=== PATIENT | male | born 1985 | race Caucasian/White ===

== ENCOUNTER 2019-07-02 18:10 | Emergency (ER) | payer BC ==
[2019-07-02] MEDS ORDERED: cefTRIAXone 1 GM Vial IM ONE (18:32)
--- NOTE | 2019-07-02 18:43 | EDM.PDOC ---
ED HPI GENERAL MEDICAL PROBLEM - General Chief Complaint: Skin Complaint Stated Complaint: SORE ON LFT LEG Time Seen by Provider: 07/02/19 18:28 Source of Information: Reports: Patient History Limitations: Reports: No Limitations - History of Present Illness INITIAL COMMENTS - FREE TEXT/NARRATIVE: HISTORY AND PHYSICAL: History of present illness: Patient is a 34-year-old male presents to the ED today with concern of a sore on his left calf over the past couple days. Patient states initially looked, like a pimple but now has become a little bit more red. Patient denies any associated symptoms with this. Patient denies any other symptoms or concerns. Patient denies fever, chills, chest pain, shortness of breath, or cough. Denies headache, neck stiff ness, change in vision, syncope, or near syncope. Denies nausea, vomiting, abdominal pain, diarrhea, constipation, or dysuria. Has not noted any blood in urine or stool. Patient has been eating and drinking appropriately. Review of systems: As per history of present illness and below otherwise all systems reviewed and negative. Past medical history: As per history of present illness and as reviewed below otherwise noncontributory. Surgical history: As per history of present illness and as reviewed below otherwise noncontributory. Social history: See social history for further information Family history: As per history of present illness and as reviewed below otherwise noncontributory. Physical exam: General: Patient is alert, oriented, and in no acute distress. Patient sitting comfortably on exam table. HEENT: Atraumatic, normocephalic, pupils equal and reactive bilaterally, negative for conjunctival pallor or scleral icterus, mucous membranes moist, TMs normal bilaterally, throat clear, neck supple, nontender, trachea midline. No drooling or trismus noted. No meningeal signs. No hot potato voice noted. Lungs: Clear to auscultation, breath sounds equal bilaterally, chest nontender. Heart: S1S2, regular rate and rhythm without overt murmur Abdomen: Soft, nondistended, nontender. Negative for masses or hepatosplenomegaly. Negative for costovertebral tenderness. Pelvis: Stable nontender. Genitourinary: Deferred. Rectal: Deferred. Skin: Intact, warm, dry. No lesions or rashes noted. Extremities: Atraumatic, negative for cords or calf pain. Neurovascular unremarkable. There is a 0.5 cm scab with surrounding 1-2 cm of erythema suggestive of folliculitis/cellulitis of the posterior mid left calf area. None fluctuant and no induration of this area. This area was outlined using a surgical marker. Neuro: Awake, alert, oriented. Cranial nerves II through XII unremarkable. Cerebellum unremarkable. Motor and sensory unremarkable throughout. Exam nonfocal. Notes: Discussed the importance for follow-up with a primary care provider. Voices understanding and is agreeable to plan of care. Denies any further questions or concerns at this time. Diagnostics: Tib/fib XR, CBC, CMP Therapeutics: Rocephin Prescription: Bactrim DS Impression: Cellulitis, left calf Plan: 1. Take medication as prescribed. You can alternate ibuprofen and Tylenol as directed for pain and discomfort. 2. Continue to monitor for signs of improving versus spreading infection. Return to the ED in 24-48 hours for reevaluation as discussed. 3. Follow up with your primary care provider as discussed. Return to the ED as needed and as discussed. Definitive disposition and diagnosis as appropriate pending reevaluation and review of above. left calf Pain Score (Numeric/FACES): 5 - Related Data Allergies Allergy/AdvReac Type Severity Reaction Status Date / Time No Known Allergies Allergy Verified 07/02/19 18:21 Home Meds: Home Meds Albuterol Sulfate [Proventil Hfa] 6.7 gm PO DAILY 07/23/18 [History] Fluticasone/Salmeterol [Advair 100-50] 14 disk PO DAILY 07/23/18 [History] Montelukast [Singulair] 10 mg PO DAILY 07/02/19 [History] Sulfamethoxazole/Trimethoprim [Bactrim Ds Tablet] 1 each PO BID #20 tablet 07/02 [Rx] Past Medical History HEENT History: Reports: None Cardiovascular History: Reports: None Respiratory History: Reports: Asthma Genitourinary History: Reports: None Neurological History: Reports: None Psychiatric History: Reports: None Endocrine/Metabolic History: Reports: None Oncologic (Cancer) History: Reports: None Dermatologic History: Reports: None - Infectious Disease History Infectious Disease History: Reports: Chicken Pox - Past Surgical History HEENT Surgical History: Reports: None GI Surgical History: Reports: Appendectomy Musculoskeletal Surgical History: Reports: Arthroscopic Knee Other Musculoskeletal Surgeries/Procedures:: left knee surgery 2007 Social & Family History - Family History Family Medical History: Noncontributory - Tobacco Use Smoking Status *Q: Never Smoker - Caffeine Use Caffeine Use: Reports: Coffee - Recreational Drug Use Recreational Drug Use: No ED ROS GENERAL - Review of Systems Review Of Systems: Comprehensive ROS is negative, except as noted in HPI. ED EXAM, SKIN/RASH Exam: See Below (see dictation) Course - Vital Signs Last Recorded V/S: Last Vital Signs Temp 97 F 07/02/19 18:19 Pulse 82 07/02/19 18:19 Resp 18 07/02/19 18:19 BP 162/99 H 07/02/19 18:19 Pulse Ox 98 07/02/19 18:19 - Orders/Labs/Meds Labs: Laboratory Tests 07/02/19 07/02/19 Range/Units 18:43 18:43 WBC 10.12 (4.0-11.0) K/uL RBC 4.78 (4.50-5.90) M/uL Hgb 16.1 (13.0-17.0) g/dL Hct 45.7 (38.0-50.0) % MCV 95.6 (80.0-98.0) fL MCH 33.7 H (27.0-32.0) pg MCHC 35.2 (31.0-37.0) g/dL RDW Std Deviation 42.4 (28.0-62.0) fl RDW Coeff of Jasmin 12 (11.0-15.0) % Plt Count 283 (150-400) K/uL MPV 9.90 (7.40-12.00) fL Neut % (Auto) 70.4 (48.0-80.0) % Lymph % (Auto) 17.9 (16.0-40.0) % Tyrrell % (Auto) 7.4 (0.0-15.0) % Eos % (Auto) 3.7 (0.0-7.0) % Baso % (Auto) 0.6 (0.0-1.5) % Neut # (Auto) 7.1 H (1.4-5.7) K/uL Lymph # (Auto) 1.8 (0.6-2.4) K/uL Tyrrell # (Auto) 0.8 (0.0-0.8) K/uL Eos # (Auto) 0.4 (0.0-0.7) K/uL Baso # (Auto) 0.1 (0.0-0.1) K/uL Nucleated RBC % 0.0 /100WBC Nucleated RBCs # 0 K/uL Sodium 138 (136-148) mmol/L Potassium 4.2 (3.5-5.1) mmol/L Chloride 105 (98-107) mmol/L Carbon Dioxide 23.4 (21.0-32.0) mmol/L BUN 15 (7.0-18.0) mg/dL Creatinine 1.1 (0.8-1.3) mg/dL Est Cr Clr Drug Dosing 97.70 mL/min Estimated GFR (MDRD) > 60.0 ml/min Glucose 89 (74-106) mg/dL Calcium 9.0 (8.5-10.1) mg/dL Total Bilirubin 0.5 (0.2-1.0) mg/dL AST 24 (15-37) IU/L ALT 45 (14-63) IU/L Alkaline Phosphatase 102 (46-116) U/L Total Protein 7.8 (6.4-8.2) g/dL Albumin 4.2 (3.4-5.0) g/dL Globulin 3.6 (2.6-4.0) g/dL Albumin/Globulin Ratio 1.2 (0.9-1.6) Meds: Medications Discontinued Medications Generic Name Dose Route Start Last Admin Trade Name Freq PRN Reason Stop Dose Admin Ceftriaxone Sodium 1 gm 07/02/19 18:32 07/02/19 19:00 Rocephin IM 07/02/19 18:33 1 gm ONETIME ONE Administration Departure - Departure Time of Disposition: 19:13 Disposition: Home, Self-Care 01 Clinical Impression: Cellulitis Qualifiers: Site of cellulitis: extremity Site of cellulitis of extremity: lower extremity Laterality: left Qualified Code(s): L03.116 - Cellulitis of left lower limb - Discharge Information Prescriptions: Sulfamethoxazole/Trimethoprim [Bactrim Ds Tablet] 1 each PO BID #20 tablet Referrals: Marc Álvarez MD [Primary Care Provider] - Forms: ED Department Discharge Additional Instructions: The following information is given to patients seen in the emergency department who are being discharged to home. This information is to outline your options for follow-up care. We provide all patients seen in our emergency department with a follow-up referral. The need for follow-up, as well as the timing and circumstances, are variable depending upon the specifics of your emergency department visit. If you don't have a primary care physician on staff, we will provide you with a referral. We always advise you to contact your personal physician following an emergency department visit to inform them of the circumstance of the visit and for follow-up with them and/or the need for any referrals to a consulting specialist. The emergency department will also refer you to a specialist when appropriate. This referral assures that you have the opportunity for follow-up care with a specialist. All of these measure are taken in an effort to provide you with optimal care, which includes your follow-up. Under all circumstances we always encourage you to contact your private physician who remains a resource for coordinating your care. When calling for follow-up care, please make the office aware that this follow-up is from your recent emergency room visit. If for any reason you are refused follow-up, please contact the [facility] Emergency Department at and asked to speak to the emergency department charge nurse. [facility] [address] [place] [address] [id number] [address] [id number] 1. Take medication as prescribed. You can alternate ibuprofen and Tylenol as directed for pain and discomfort. 2. Continue to monitor for signs of improving versus spreading infection. Return to the ED in 24-48 hours for reevaluation as discussed. 3. Follow up with your primary care provider as discussed. Return to the ED as needed and as discussed.
--- NOTE | 2019-07-02 19:05 | CR ---
Indication: Cellulitis Technique: Four views of the left tibia and fibula Comparison: None available Findings/Impression: Bones: No acute fracture or suspicious osseous abnormality seen. Apparent superolateral subluxation of the patella on the 1st image could be projectional. Correlate clinically. Joint spaces: Unremarkable. Soft tissues: Unremarkable. Dictated by Doc Rivera MD @ 07/02/2019 7:02:58 PM Dictated by: Doc Rivera MD @ 07/02/2019 19:04:07 (Electronically Signed)
[2019-07-02 19:09] LABS: BLOOD UREA NITROGEN,BUN 15 mg/dL (7.0-18.0); CARBON DIOXIDE,CO2 23.4 mmol/L (21.0-32.0); CHLORIDE,CL 105 mmol/L (98-107); GLUCOSE RANDOM 89 mg/dL (74-106); POTASSIUM,K 4.2 mmol/L (3.5-5.1); SODIUM,NA 138 mmol/L (136-148)
== END 2019-07-02 19:20 | disposition home or self-care (01) ==
LOC: MW.ED 18:10
DX: L03.116 Cellulitis of left lower limb (principal); J45.909 Unspecified asthma, uncomplicated; Z79.51 Long term (current) use of inhaled steroids
CPT/HCPCS: 36415; 73590; 80053; 85025; 96372; 99283; J0696

== ENCOUNTER 2019-11-06 02:03 | Emergency (ER) | payer BC, OTHER ==
--- NOTE | 2019-11-06 02:32 | EDM.PDOC ---
ED HPI GENERAL MEDICAL PROBLEM - General Chief Complaint: Respiratory Problem Stated Complaint: SORE THROAT, FEVER, COUGH, ASTHMA Time Seen by Provider: 11/06/19 02:27 Source of Information: Reports: Patient History Limitations: Reports: No Limitations - History of Present Illness INITIAL COMMENTS - FREE TEXT/NARRATIVE: He has had cough shortness of breath and sore throat for 2 days. Notes he called in sick from work yesterday is having chest pain and dyspnea on exertion Duration: Getting Worse Quality: Reports: Ache Severity: Moderate Improves with: Reports: None Worsens with: Reports: Movement Associated Symptoms: Reports: Cough, cough w sputum, Fever/Chills, Weakness sore throat Pain Score (Numeric/FACES): 4 - Related Data Allergies Allergy/AdvReac Type Severity Reaction Status Date / Time No Known Allergies Allergy Verified 11/06/19 02:16 Home Meds: Home Meds Albuterol Sulfate [Proventil Hfa] 1 inh INH ASDIRECTED 07/23/18 [History] Fluticasone/Salmeterol [Advair 100-50] 14 inh INH ASDIRECTED 07/23/18 [History] Montelukast [Singulair] 10 mg PO BID 07/02/19 [History] Past Medical History HEENT History: Reports: None Cardiovascular History: Reports: None Respiratory History: Reports: Asthma Gastrointestinal History: Reports: None Genitourinary History: Reports: None Musculoskeletal History: Reports: None Neurological History: Reports: None Psychiatric History: Reports: None Endocrine/Metabolic History: Reports: None 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 Hematologic History: Reports: None Immunologic History: Reports: None Oncologic (Cancer) History: Reports: None Dermatologic History: Reports: None - Infectious Disease History Infectious Disease History: Reports: None - Past Surgical History Head Surgeries/Procedures: Reports: None HEENT Surgical History: Reports: None GI Surgical History: Reports: Appendectomy Musculoskeletal Surgical History: Reports: Arthroscopic Knee Other Musculoskeletal Surgeries/Procedures:: left knee surgery 2007 Social & Family History - Family History Family Medical History: Noncontributory - Tobacco Use Smoking Status *Q: Never Smoker - Caffeine Use Caffeine Use: Reports: Soda - Recreational Drug Use Recreational Drug Use: No ED ROS GENERAL - Review of Systems Review Of Systems: See Below Constitutional: Reports: No Symptoms, Fever, Chills HEENT: Reports: No Symptoms Respiratory: Reports: Shortness of Breath, Pleuritic Chest Pain, Cough, Sputum Cardiovascular: Reports: Dyspnea on Exertion Endocrine: Reports: No Symptoms GI/Abdominal: Reports: No Symptoms Musculoskeletal: Reports: No Symptoms Skin: Reports: No Symptoms Neurological: Reports: No Symptoms Psychiatric: Reports: No Symptoms Hematologic/Lymphatic: Reports: No Symptoms Immunologic: Reports: No Symptoms ED EXAM, GENERAL - Physical Exam Exam: See Below General Appearance: Alert, WD/WN, No Apparent Distress Eye Exam: Bilateral Eye: Normal Fundi, Normal Inspection, PERRL Ear Exam: Bilateral Ear: Auricle Normal, Canal Normal Nose: Normal Inspection Throat/Mouth: Normal Inspection Head: Atraumatic, Normocephalic Neck: Normal Inspection Respiratory/Chest: Rhonchi Cardiovascular: Normal Peripheral Pulses Back Exam: Normal Inspection, Full Range of Motion Extremities: Normal Inspection, Normal Range of Motion Neurological: Alert, Oriented, CN II-XII Intact Psychiatric: Normal Affect, Normal Mood Skin Exam: Warm, Dry, Intact, Normal Color Lymphatic: No Adenopathy Course - Vital Signs Text/Narrative:: This 34-year-old gentleman presents to the emergency room with a chief complaint of cough, fever, some shortness of breath. Patient is an asthmatic and states that for the past 3 days he has been feeling worse than normal. Patient's O2 saturation has been very good. Patient's chest x-ray which was performed today has been negative. Patient is negative for his strep, influenza AMB. Patient had a CMV 19 test which is pending at this time patient instructed to stay isolated/quarantined and wait for results of testing. Developed severe shortness of breath worsening he is to follow-up with the emergency room. Patient to follow-up with his primary care physician and continue his medication for asthma. Of note the patient is not wheezing does have scattered rhonchi. Last Recorded V/S: Last Vital Signs Temp 96.8 F L 11/06/19 02:15 Pulse 110 H 11/06/19 02:15 Resp 18 11/06/19 02:15 BP 142/90 H 11/06/19 02:15 Pulse Ox 96 11/06/19 02:15 - Orders/Labs/Meds Orders: Active Orders 24 hr Category Date Time Status CORONAVIRUS COVID-19 PCR PHL [MREF] Stat Lab 11/06/19 02:30 Received CULTURE STREP A CONFIRMATION [RM] Stat Lab 11/06/19 02:30 Results STREP SCRN A RAPID W CULT CONF [RM] Stat Lab 11/06/19 02:30 Results Isolation [COMM] Routine Oth 11/06/19 02:34 Active Departure - Departure Time of Disposition: 03:16 Disposition: Home, Self-Care 01 Clinical Impression: URI, acute, Respiratory syncytial virus (RSV) infection - Discharge Information Instructions: Viral Respiratory Infection, [id number] Referrals: Marc Álvarez MD [Primary Care Provider] - Forms: ED Department Discharge Additional Instructions: 1. Removed self quarantine until results of test. II. Increase zinc and vitamin C. 3. Stay hydrated . 4. Return to the emergency room for shortness of breath severe, and/or severe chest pain Sepsis Event Note - Evaluation Sepsis Screening Result: No Definite Risk - Focused Exam Vital Signs: Vital Signs Temp Pulse Resp BP Pulse Ox 11/06/19 02:15 96.8 F L 110 H 18 142/90 H 96 Date Exam was Performed: 11/06/19 Time Exam was Performed: 03:14 - My Orders Last 24 Hours: My Active Orders 11/06/19 02:30 CORONAVIRUS COVID-19 PCR PHL [MREF] Stat CULTURE STREP A CONFIRMATION [RM] Stat STREP SCRN A RAPID W CULT CONF [RM] Stat 11/06/19 02:34 Isolation [COMM] Routine - Assessment/Plan Last 24 Hours: My Active Orders 11/06/19 02:30 CORONAVIRUS COVID-19 PCR PHL [MREF] Stat CULTURE STREP A CONFIRMATION [RM] Stat STREP SCRN A RAPID W CULT CONF [RM] Stat 11/06/19 02:34 Isolation [COMM] Routine
--- NOTE | 2019-11-06 03:09 | CR ---
INDICATION: Cough, congestion TECHNIQUE: Chest radiograph 1 view COMPARISON: None FINDINGS: Mediastinum: The mediastinum is normal in appearance. The heart silhouette is normal in size and morphology. Lung: Both lungs are unremarkable in appearance. No sign of pleural effusion seen. No pneumothorax is identified. Bone and Soft tissue: Unremarkable for age. IMPRESSION: 1. No acute cardiopulmonary disease is seen. Dictated by: Aleks Cornejo MD @ 11/06/2019 03:08:54 (Electronically Signed)
== END 2019-11-06 03:30 | disposition home or self-care (01) ==
LOC: MW.ED 02:03
DX: J06.9 Acute upper respiratory infection, unspecified (principal); B97.4 Respiratory syncytial virus as the cause of diseases classified elsewhere; Z79.899 Other long term (current) drug therapy; Z20.828 Contact with and (suspected) exposure to other viral communicable diseases
CPT/HCPCS: 71045; 71045-26; 87081; 87804; 87880-QW; 99283; 99285-25; U0002

== ENCOUNTER 2021-08-10 05:40 | Emergency (ER) | payer BC ==
[2021-08-10] MEDS ORDERED: Sodium Chloride 0.9% 1,000 ML IV ONE ×2 (06:05→07:16)
[2021-08-10] MEDS ORDERED: Ondansetron 4 MG/2 ML SDV IVPUSH ONE (06:05)
[2021-08-10] MEDS ORDERED: Sodium Chloride 0.9% 2.5 ML Syringe FLUSH PRN (06:05)
[2021-08-10] MEDS ORDERED: Sodium Chloride 0.9% 10 ML Syringe FLUSH PRN (06:05)
[2021-08-10 06:20] LABS: CARBON DIOXIDE,CO2 20.7 mmol/L (21.0-32.0)
--- NOTE | 2021-08-10 06:22 | EDM.PDOC ---
ED HPI GENERAL MEDICAL PROBLEM - General Chief Complaint: Abdominal Pain Stated Complaint: SHORT OF BREATH, VOMITING, DIARRHEA Time Seen by Provider: 08/10/21 06:19 Source of Information: Reports: Patient History Limitations: Reports: No Limitations - History of Present Illness INITIAL COMMENTS - FREE TEXT/NARRATIVE: 36-year-old male past medical history asthma presents for abdominal pain associated with nausea, vomiting, diarrhea, shortness of breath. Patient states that symptoms started with abdominal pain around 9 AM yesterday. Abdominal pain is in his midepigastrium radiating to diffuse generalized abdomen. It is associated with too numerous to count episodes of vomiting. This notes multiple episodes of watery diarrhea. He notes that he has developed a mild cough and shortness of breath after the vomiting. Abdomen Pain Score (Numeric/FACES): 8 - Related Data Allergies Allergy/AdvReac Type Severity Reaction Status Date / Time No Known Allergies Allergy Verified 08/10/21 05:52 Home Meds: Home Meds Albuterol Sulfate [Proventil Hfa] 1 inh INH ASDIRECTED 07/23/18 [History] Fluticasone/Salmeterol [Advair 100-50] 14 inh INH ASDIRECTED 07/23/18 [History] Montelukast [Singulair] 10 mg PO BID 07/02/19 [History] Amoxicillin/Clavulanate K [Augmentin 875-125 MG] 1 tab PO BID #20 tablet 08/10/21 [Rx] Ondansetron [Zofran ODT] 4 mg PO Q6H PRN #10 tab.dis 08/10/21 [Rx] Past Medical History HEENT History: Reports: None Cardiovascular History: Reports: None Respiratory History: Reports: Asthma Gastrointestinal History: Reports: None Genitourinary History: Reports: None Musculoskeletal History: Reports: None Neurological History: Reports: None Psychiatric History: Reports: None Endocrine/Metabolic History: Reports: None Insulin Pump Model and Filler Operator: N/A Hematologic History: Reports: None Immunologic History: Reports: None Oncologic (Cancer) History: Reports: None Dermatologic History: Reports: None - Infectious Disease History Infectious Disease History: Reports: None - Past Surgical History Head Surgeries/Procedures: Reports: None HEENT Surgical History: Reports: None GI Surgical History: Reports: Appendectomy Musculoskeletal Surgical History: Reports: Arthroscopic Knee Other Musculoskeletal Surgeries/Procedures:: left knee surgery 2008 Social & Family History - Family History Family Medical History: No Pertinent Family History - Caffeine Use Caffeine Use: Reports: Soda - Recreational Drug Use Recreational Drug Use: No ED ROS GENERAL - Review of Systems Review Of Systems: Comprehensive ROS is negative, except as noted in HPI. ED EXAM, GENERAL - Physical Exam Exam: See Below Exam Limited By: No Limitations General Appearance: Alert, WD/WN, No Apparent Distress Ears: Hearing Grossly Normal Throat/Mouth: Normal Voice, No Airway Compromise Head: Atraumatic, Normocephalic Respiratory/Chest: No Respiratory Distress, Lungs Clear, Normal Breath Sounds, No Accessory Muscle Use Cardiovascular: Normal Peripheral Pulses, Tachycardia GI/Abdominal: Soft, Non-Tender, No Distention Extremities: Normal Inspection Neurological: Alert, Normal Cognition, Normal Gait Psychiatric: Normal Affect, Normal Mood Skin Exam: Warm, Dry, Intact, Normal Color Course - Vital Signs Last Recorded V/S: Last Vital Signs Temp 97.4 F 08/10/21 05:40 Pulse 114 H 08/10/21 07:26 Resp 20 08/10/21 07:26 BP 142/98 H 08/10/21 07:26 Pulse Ox 99 08/10/21 07:26 - Orders/Labs/Meds Orders: Active Orders 24 hr Category Date Time Status Sodium Chloride 0.9% [Saline Flush] Med 08/10/21 06:05 Active 10 ml FLUSH ASDIRECTED PRN Sodium Chloride 0.9% [Saline Flush] Med 08/10/21 06:05 Active 2.5 ml FLUSH ASDIRECTED PRN Saline Lock Insert [OM.PC] Stat Oth 08/10/21 06:05 Ordered Medication Orders Sodium Chloride (Sodium Chloride 0.9% 10 Ml Syringe) 10 ml FLUSH ASDIRECTED PRN PRN Reason: Keep Vein Open Last Admin: 08/10/21 06:15 Dose: 10 ml Documented by: PRIMITIVO Sodium Chloride (Sodium Chloride 0.9% 2.5 Ml Syringe) 2.5 ml FLUSH ASDIRECTED PRN PRN Reason: Keep Vein Open Last Admin: 08/10/21 06:15 Dose: 2.5 ml Documented by: PRIMITIVO Labs: Laboratory Tests 08/10/21 08/10/21 08/10/21 Range/Units 05:48 05:48 05:48 WBC 10.21 (4.0-11.0) K/uL RBC 4.75 (4.50-5.90) M/uL Hgb 17.0 (13.0-17.0) g/dL Hct 46.4 (38.0-50.0) % MCV 97.7 (80.0-98.0) fL MCH 35.8 H (27.0-32.0) pg MCHC 36.6 (31.0-37.0) g/dL RDW Std Deviation 41.9 (28.0-62.0) fl RDW Coeff of Jasmin 12 (11.0-15.0) % Plt Count 255 (150-400) K/uL MPV 9.90 (7.40-12.00) fL Neut % (Auto) 89.6 H (48.0-80.0) % Lymph % (Auto) 3.0 L (16.0-40.0) % Mora % (Auto) 6.5 (0.0-15.0) % Eos % (Auto) 0.8 (0.0-7.0) % Baso % (Auto) 0.1 (0.0-1.5) % Neut # (Auto) 9.2 H (1.4-5.7) K/uL Lymph # (Auto) 0.3 L (0.6-2.4) K/uL Mora # (Auto) 0.7 (0.0-0.8) K/uL Eos # (Auto) 0.1 (0.0-0.7) K/uL Baso # (Auto) 0.0 (0.0-0.1) K/uL Nucleated RBC % 0.0 /100WBC Nucleated RBCs # 0 K/uL Sodium 137 (136-148) mmol/L Potassium 4.0 (3.5-5.1) mmol/L Chloride 101 (98-107) mmol/L Carbon Dioxide 20.7 L (21.0-32.0) mmol/L BUN 19 H (7.0-18.0) mg/dL Creatinine 1.4 H (0.8-1.3) mg/dL Est Cr Clr Drug Dosing 75.32 mL/min Estimated GFR (MDRD) 57.3 ml/min Glucose 148 H (74-106) mg/dL Calcium 9.3 (8.5-10.1) mg/dL Total Bilirubin 1.6 H (0.2-1.0) mg/dL AST 20 (15-37) IU/L ALT 40 (14-63) IU/L Alkaline Phosphatase 73 (46-116) U/L Total Protein 7.7 (6.4-8.2) g/dL Albumin 4.4 (3.4-5.0) g/dL Globulin 3.3 (2.6-4.0) g/dL Albumin/Globulin Ratio 1.3 (0.9-1.6) Lipase (73-393) U/L Urine Color Urine Appearance Urine pH (5.0-8.0) Ur Specific Sanderson (1.001-1.035) Urine Protein (NEGATIVE) mg/dL Urine Glucose (UA) (NEGATIVE) mg/dL Urine Ketones (NEGATIVE) mg/dL Urine Occult Blood (NEGATIVE) Urine Nitrite (NEGATIVE) Urine Bilirubin (NEGATIVE) Urine Urobilinogen (<2.0) EU/dL Ur Leukocyte Esterase (NEGATIVE) Influenza Type A RNA NEGATIVE (NEGATIVE) Influenza Type B RNA NEGATIVE (NEGATIVE) SARS-CoV-2 RNA (BRETT) NEGATIVE (NEGATIVE) 08/10/21 08/10/21 Range/Units 05:54 07:30 WBC (4.0-11.0) K/uL RBC (4.50-5.90) M/uL Hgb (13.0-17.0) g/dL Hct (38.0-50.0) % MCV (80.0-98.0) fL MCH (27.0-32.0) pg MCHC (31.0-37.0) g/dL RDW Std Deviation (28.0-62.0) fl RDW Coeff of Jasmin (11.0-15.0) % Plt Count (150-400) K/uL MPV (7.40-12.00) fL Neut % (Auto) (48.0-80.0) % Lymph % (Auto) (16.0-40.0) % Mora % (Auto) (0.0-15.0) % Eos % (Auto) (0.0-7.0) % Baso % (Auto) (0.0-1.5) % Neut # (Auto) (1.4-5.7) K/uL Lymph # (Auto) (0.6-2.4) K/uL Mora # (Auto) (0.0-0.8) K/uL Eos # (Auto) (0.0-0.7) K/uL Baso # (Auto) (0.0-0.1) K/uL Nucleated RBC % /100WBC Nucleated RBCs # K/uL Sodium (136-148) mmol/L Potassium (3.5-5.1) mmol/L Chloride (98-107) mmol/L Carbon Dioxide (21.0-32.0) mmol/L BUN (7.0-18.0) mg/dL Creatinine (0.8-1.3) mg/dL Est Cr Clr Drug Dosing mL/min Estimated GFR (MDRD) ml/min Glucose (74-106) mg/dL Calcium (8.5-10.1) mg/dL Total Bilirubin (0.2-1.0) mg/dL AST (15-37) IU/L ALT (14-63) IU/L Alkaline Phosphatase (46-116) U/L Total Protein (6.4-8.2) g/dL Albumin (3.4-5.0) g/dL Globulin (2.6-4.0) g/dL Albumin/Globulin Ratio (0.9-1.6) Lipase 67 L (73-393) U/L Urine Color DARK YELLOW Urine Appearance CLEAR Urine pH 8.0 (5.0-8.0) Ur Specific Sanderson 1.015 (1.001-1.035) Urine Protein NEGATIVE (NEGATIVE) mg/dL Urine Glucose (UA) NEGATIVE (NEGATIVE) mg/dL Urine Ketones >=80 (NEGATIVE) mg/dL Urine Occult Blood NEGATIVE (NEGATIVE) Urine Nitrite NEGATIVE (NEGATIVE) Urine Bilirubin NEGATIVE (NEGATIVE) Urine Urobilinogen 0.2 (<2.0) EU/dL Ur Leukocyte Esterase NEGATIVE (NEGATIVE) Influenza Type A RNA (NEGATIVE) Influenza Type B RNA (NEGATIVE) SARS-CoV-2 RNA (BRETT) (NEGATIVE) Meds: Medications Generic Name Dose Route Start Last Admin Trade Name Freq PRN Reason Stop Dose Admin Sodium Chloride 10 ml 08/10/21 06:05 08/10/21 06:15 Sodium Chloride 0.9% 10 Ml Syringe FLUSH 10 ml ASDIRECTED PRN Administration Keep Vein Open Sodium Chloride 2.5 ml 08/10/21 06:05 08/10/21 06:15 Sodium Chloride 0.9% 2.5 Ml Syringe FLUSH 2.5 ml ASDIRECTED PRN Administration Keep Vein Open Discontinued Medications Generic Name Dose Route Start Last Admin Trade Name Freq PRN Reason Stop Dose Admin Sodium Chloride 1,000 mls @ 999 mls/hr 08/10/21 06:05 08/10/21 06:11 Normal Saline IV 08/10/21 07:05 999 mls/hr .Bolus ONE Administration Sodium Chloride 1,000 mls @ 999 mls/hr 08/10/21 07:16 08/10/21 07:25 Normal Saline IV 08/10/21 08:16 999 mls/hr .Bolus ONE Administration Iopamidol 100 ml 08/10/21 07:59 08/10/21 08:00 Iopamidol 755 Mg/Ml 500 Ml Multipack Bottle IVPUSH 08/10/21 08:00 100 ml ONETIME STA Administration Morphine Sulfate 4 mg 08/10/21 06:28 08/10/21 06:47 Morphine 4 Mg/Ml Vial IVPUSH 08/10/21 06:29 4 mg ONETIME ONE Administration Ondansetron HCl 4 mg 08/10/21 06:05 08/10/21 06:11 Ondansetron 4 Mg/2 Ml Sdv IVPUSH 08/10/21 06:06 4 mg ONETIME ONE Administration - Re-Assessments/Exams Free Text/Narrative Re-Assessment/Exam: 08/10/21 06:32 Will get labs, COVID testing, will treat symptomatically. 08/10/21 07:16 Labs show mild elevated bilirubin, mild elevated creatinine, otherwise grossly normal. Will give additional 1 L IV fluid bolus. Will get CT abdomen pelvis. 08/10/21 08:40 CT imaging shows colitis, otherwise unremarkable. Will discharge patient with short course of antibiotics, symptomatic relief medication. Departure - Departure Time of Disposition: 08:40 Disposition: Home, Self-Care 01 Condition: Good Clinical Impression: Colitis - Discharge Information Prescriptions: Amoxicillin/Clavulanate K [Augmentin 875-125 MG] 1 tab PO BID #20 tablet Ondansetron [Zofran ODT] 4 mg PO Q6H PRN #10 tab.dis PRN Reason: Nausea Instructions: Abdominal Pain, Adult, [id number] Referrals: PCP,None [Primary Care Provider] - Forms: ED Department Discharge Additional Instructions: Your CT imaging shows evidence of colitis which is an infectious or inflammatory process of the colon. I prescribed a medication called Augmentin which can help with infection as well as a medication called zofran which can help with your nausea. You may still experience symptoms for the next few days, but if pain worsens or you cannot keep anything down, come back to the ER for reassessment. Medications were sent to [facility]. The following information is given to patients seen in the emergency department who are being discharged to home. This information is to outline your options for follow-up care. We provide all patients seen in our emergency department with a follow-up referral. The need for follow-up, as well as the timing and circumstances, are variable depending upon the specifics of your emergency department visit. If you don't have a primary care physician on staff, we will provide you with a referral. We always advise you to contact your personal physician following an emergency department visit to inform them of the circumstance of the visit and for follow-up with them and/or the need for any referrals to a consulting specialist. The emergency department will also refer you to a specialist when appropriate. This referral assures that you have the opportunity for follow-up care with a specialist. All of these measure are taken in an effort to provide you with optimal care, which includes your follow-up. Under all circumstances we always encourage you to contact your private physician who remains a resource for coordinating your care. When calling for follow-up care, please make the office aware that this follow-up is from your recent emergency room visit. If for any reason you are refused follow-up, please contact the [facility] Emergency Department at and asked to speak to the emergency department charge nurse. Please follow up with your primary care physician. If you do not have a primary care physician, see below: [facility] [address] [place] [id number] [address] [address] [facility] [address] [place] [address], [place] [address] Sepsis Event Note (ED) - Evaluation Sepsis Screening Result: No Definite Risk - Focused Exam Vital Signs: Vital Signs Temp Pulse Resp BP Pulse Ox 08/10/21 07:26 114 H 20 142/98 H 99 08/10/21 05:40 97.4 F 102 H 18 136/93 H 98
[2021-08-10] MEDS ORDERED: Morphine 4 MG/ML VIAL IVPUSH ONE (06:28)
--- NOTE | 2021-08-10 06:36 | CR ---
INDICATION: Difficulty in breathing COMPARISON: November 06, 2019 TECHNIQUE: PA and lateral views of the chest were acquired FINDINGS: TUBES AND LINES: None. HEART AND MEDIASTINUM: The heart size is normal. The mediastinal contour appears normal for patient age. LUNGS AND PLEURAL SPACES: The lungs appear normal.The pleural spaces are unremarkable. OSSEOUS STRUCTURES: Age-appropriate appearance. No acute focal finding. IMPRESSION: No evidence of active pulmonary disease. Dictated by Benjamin Corral MD @ 08/10/2021 6:34:18 AM (Electronically Signed)
[2021-08-10 06:41] LABS: CORONAVIRUS COVID-19 NAA NEGATIVE (NEGATIVE); INFLUENZA A NAA NEGATIVE (NEGATIVE); INFLUENZA B NAA NEGATIVE (NEGATIVE)
[2021-08-10] MEDS ORDERED: Iopamidol 755 MG/ML 500 ML Multipack Bottle IVPUSH STA (07:59)
--- NOTE | 2021-08-10 08:22 | CT ---
INDICATION: Mid epigastric pain and vomiting. COMPARISON: None TECHNIQUE: CT examination of the abdomen and pelvis was performed following the uneventful intravenous administration of 100 cc of Isovue 370. Thin section axial images were obtained from the lung bases through the pubic symphysis. Oral contrast was not administered. Please note that all CT scans at this facility use dose modulation, iterative reconstruction, and/or weight-based dosing when appropriate to reduce radiation dose to as low as reasonably achievable. FINDINGS: LUNG BASES: The lung bases as visualized appear normal.Heart size is normal at the lung bases. Small hiatal hernia. LIVER/BILIARY SYSTEM:Hepatic steatosis. No focal mass or biliary ductal dilatation.The gall bladder appears normal. ADRENALS: Normal KIDNEYS, URETERS and BLADDER:The kidneys appear normal. No visible mass, calculus or hydronephrosis. The ureters and bladder as visualized appear normal. SPLEEN:Normal appearance. PANCREAS: Appears normal. RETROPERITONEUM and MESENTERY: There is no mass, adenopathy or aortic aneurysm. GASTROINTESTINAL SYSTEM: There is mild thickening of the transverse colon. This may be due to a mild colitis pattern in this area. No intramural air, free air or collection. No mechanical obstruction. PELVIS: No mass, adenopathy or free fluid. OSSEOUS STRUCTURES and ABDOMINAL WALL: There is an age-appropriate appearance of the osseous structures.Very small fat containing umbilical hernia OTHER: No free fluid or free air. IMPRESSION: 1. Mild thickening of the transverse colon. This may be due to mild colitis. No intramural air, free air or collection. No mechanical obstruction. 2. Hepatic steatosis. Normal appearing gallbladder. Please note that all CT scans at this facility use dose modulation, iterative reconstruction, and/or weight-based dosing when appropriate to reduce radiation dose to as low as reasonably achievable. Dictated by Benjamin Corral MD @ 08/10/2021 8:22:33 AM (Electronically Signed)
== END 2021-08-10 08:57 | disposition home or self-care (01) ==
LOC: MW.ED 05:40
DX: K52.9 Noninfective gastroenteritis and colitis, unspecified (principal); R74.8 Abnormal levels of other serum enzymes; J45.909 Unspecified asthma, uncomplicated; Z79.899 Other long term (current) drug therapy; Z20.822 Contact with and (suspected) exposure to COVID-19
CPT/HCPCS: 0240U; 36415; 71046; 74177; 80053; 81003; 83690; 85025; 96374; 96375; 99284; J2270; J2405; J7030; Q9967

== ENCOUNTER 2024-01-03 21:44 | Emergency (ER) | payer BC ==
[2024-01-03] MEDS: Acetaminophen 325 MG Tab PO ONE (22:15)
[2024-01-03] MEDS: Acetaminophen 650 MG in Premix Bag 1 BAG IV ONE (22:15)
== END 2024-01-03 23:33 | disposition home or self-care (01) ==
LOC: MW.ED 21:44
DX: S93.401A Sprain of unspecified ligament of right ankle, initial encounter (principal); Z90.49 Acquired absence of other specified parts of digestive tract; Z75.8 Other problems related to medical facilities and other health care; X50.1XXA Overexertion from prolonged static or awkward postures, initial encounter; Y93.01 Activity, walking, marching and hiking
CPT/HCPCS: 73600; 73620; 99283; A9270